=== PATIENT | female | born 1980 | race Caucasian/White ===

== ENCOUNTER 2018-05-22 19:38 | Emergency (ER) | payer BC, SELFPAY ==
[2018-05-22 19:57] VITALS: BP 124/76; PULSE 104; RESP 16; O2SAT 100; BMI 30.4
--- NOTE | 2018-05-22 20:30 | ED.ABDPAIN ---
HPI - Abdominal Pain <Claudine Momin PA-C - Last Filed: 05/22/18 22:40> General Chief Complaint: Abdominal Pain Stated Complaint: KNEE SURGERY RECENTLY,ON OXYCODONE,NO BM,PAIN Time Seen by Provider: 05/22/18 20:30 Source: patient Mode of arrival: ambulatory Limitations: no limitations History of Present Illness HPI narrative: This 37-year-old female comes to the ED today due to constipation. She states that an ACL reconstruction last . Normally she does not take any medication, but she has needed to take 10 mg of oxycodone every 4 hr or so to manage pain. She has been taking Colace 300 mg daily, but today is on day 6 without a bowel movement. She started to have some fullness so did a Fleet's enema at home but unable to go. She feels like she has the urge and feels distended and crampy. She denies any nausea or vomiting. She has not had any fever. She states that she has only been Ensure, Jell-O, crackers, not her usual foods, but is drinking plenty of fluids. She denies any other new symptoms or complaints aside from chronic hemorrhoids Related Data Home Medications Medication Instructions Recorded Confirmed multivitamin [Multiple Vitamins] 1 tab PO QDAY #0 11/21/17 Allergies Allergy/AdvReac Type Severity Reaction Status Date / Time No Known Allergies Allergy Uncoded 01/10/18 12:48 Review of Systems <Claudine Momin PA-C - Last Filed: 05/22/18 22:40> Review of Systems All systems reviewed & are unremarkable except as noted in HPI and below Exam <Claudine Momin PA-C - Last Filed: 05/22/18 22:40> Narrative Exam Narrative: GENERAL APPEARANCE: Patient resting comfortably, in no distress. HEENT: PERRL, EOMI, no scleral icterus NECK: Supple LUNGS: Clear to auscultation bilaterally. HEART: Rate and rhythm regular, normal S1 and S2, no S3 or S4. ABDOMEN: Soft, nondistended, bowel sounds present x 4 quadrants, no masses palpable, mild generalized tenderness without guarding or rebound, no CVAT EXTREMITIES: No edema, no cyanosis DERMATOLOGIC: No jaundice or exanthem NEUROLOGIC: Alert and oriented with normal speech and coordination RECTAL: There are 2 large, nonthrombosed hemorrhoids externally which are somewhat tender. I can palpate some firm but not rock hard stool about 2 cm in the vault. Stool is brown, guaiac negative Initial Vital Signs Initial Vital Signs: Vital Signs Pulse Rate 104 H 05/22/18 19:57 Respiratory Rate 16 05/22/18 19:57 Blood Pressure 124/76 H 05/22/18 19:57 Pulse Oximetry 100 05/22/18 19:57 <Casey Baugh DO - Last Filed: 05/24/18 03:41> Initial Vital Signs Initial Vital Signs: Vital Signs Pulse Rate 104 H 05/22/18 19:57 Respiratory Rate 16 05/22/18 19:57 Blood Pressure 124/76 H 05/22/18 19:57 Pulse Oximetry 100 05/22/18 19:57 Course <Claudine Momin PA-C - Last Filed: 05/22/18 22:40> Additional Information: Patient felt urgency but did not have bowel movement while here after mineral oil suppository attempt to move with red rubber catheter. She did feel like she might be able to got home later. She was given instructions for continued treatment at home and agreed to return if any acutely worsening symptoms such as pain, fever, or vomiting Vital Signs - 8 hr 05/22/18 19:57 Pulse Rate 104 H Respiratory Rate 16 Blood Pressure 124/76 H Pulse Oximetry 100 <Casey Baugh DO - Last Filed: 05/24/18 03:41> Vital Signs - 8 hr 05/22/18 19:57 Pulse Rate 104 H Respiratory Rate 16 Blood Pressure 124/76 H Pulse Oximetry 100 Discharge Plan Departure Patient Disposition: Home Clinical Impression: Constipation due to opioid therapy Discharge Date/Time: 05/22/18 22:42 Interventions: ED Discharge Assessment Last Done: 05/22/18 22:41 Instructions: DI for Constipation Activity Restrictions/Additional Instructions: Please try mixing a dose of MiraLax with 1 dose of liquid Maalox, +4 to 6 oz each of prune juice and apple juice. This typically resolve the constipation. You can repeat this tomorrow if needed. Please continue to take MiraLax every day while you are using the pain medication as this is likely to help keep things moving for you. You can add other laxatives or stool softeners to that if you need to. Please return as we talked about if you have acutely worsening pain or new symptoms such as vomiting or fever Prescriptions: No Action multivitamin [Multiple Vitamins] 1 EACH tablet 1 tab PO QDAY Qty: 0 RF: 0 Referrals: Jaswant Duncan [Other] <Casey Baugh, - Last Filed: 05/24/18 03:41> Cosign ED Attending Amber Attestation: I was immediately available in the department for consultation. Documentation has been reviewed. I agree with assessment and plan.
[2018-05-22 22:41] VITALS: BP 117/75; PULSE 92; RESP 18; TEMP 37.1; O2SAT 98
== END 2018-05-22 22:42 | disposition home or self-care (01) ==
PROVIDERS: Emergency Provider Internal Medicine; PCP Family Medicine
DX: K59.03 Drug induced constipation (principal); T40.2X5A Adverse effect of other opioids, initial encounter
CPT/HCPCS: 99282; 99283

== ENCOUNTER → 2021-10-26 14:13 | Outpatient (CLI) | payer BC, SELFPAY | PROVIDERS: PCP Family Medicine; Referring Provider Family Medicine; Visit Provider Family Medicine | DX: N63.25 Unspecified lump in the left breast, overlapping quadrants (principal); Z53.8 Procedure and treatment not carried out for other reasons ==

== ENCOUNTER → 2021-11-16 13:23 | Outpatient (CLI) | payer BC, SELFPAY ==
--- NOTE | 2021-11-16 13:24 | DI.MG.S_ITS ---
BILATERAL DIGITAL DIAGNOSTIC MAMMOGRAM 3D/2D: 11/16/2021 CLINICAL: Left breast skin lump. Comparison is made to exams dated: 01/25/2016 mammogram and 05/30/2011 mammogram - outside location. The tissue of both breasts is heterogeneously dense. This may lower the sensitivity of mammography. No significant masses, calcifications, or other findings are seen in either breast. No abnormality which corresponds with the palpable abnormality is seen. IMPRESSION: INCOMPLETE: NEEDS ADDITIONAL IMAGING EVALUATION There is no abnormality seen in the left breast to correspond with the mass in the sub-areolar depth, however, ultrasound is recommended. US will be performed and dictated separately. This exam was interpreted at Station ID: [id number]. NOTE: For mammograms, a report in lay terms will be sent to the patient. Approximately 15% of breast malignancies will not be visualized mammographically. In the management of a palpable breast mass, a negative mammogram must not discourage biopsy of a clinically suspicious lesion. Electronically Signed By: Kun Hidalgo acr/:11/16/2021 15:26:44 ACR BI-RADS Category 0: Incomplete [id number]
--- NOTE | 2021-11-16 13:24 | DI.US.S_ITS ---
ULTRASOUND OF LEFT BREAST: 11/16/2021 CLINICAL: Palpable left breast lump. Comparison is made to exams dated: 11/16/2021 mammogram - [facility], 01/25/2016 mammogram, and 05/30/2011 mammogram - outside location. Color flow and Doppler ultrasound of the left breast were performed. In the left retroareolar breast there is a 0.9 x 0.5 x 0.9 cm hypoechoic focus within the skin. IMPRESSION: BENIGN Given the history of being present for the last year and association with a previously pulled hair the finding is likely a sebaceous cyst. Recommend clinical treatment and follow up. The location is within the skin and therefore a dermal malignancy cannot be excluded. If on clinical exam this finding has a clinical appearance that is suspicious for a malignancy or if the finding persists after treatment, recommend referral to dermatology. A 1 year screening mammogram is recommended. This exam was interpreted at Station ID: [id number]. Electronically Signed By: Kun Hidalgo acr/:11/16/2021 15:46:59 letter sent: Clinical Evaluation Ultrasound BI-RADS: 2 Benign
== END ==
PROVIDERS: PCP Family Medicine; Referring Provider Family Medicine; Visit Provider Family Medicine
DX: N63.20 Unspecified lump in the left breast, unspecified quadrant (principal); R92.2 Inconclusive mammogram
CPT/HCPCS: 76642; 77066; G0279

== ENCOUNTER → 2023-01-31 09:25 | Outpatient (CLI) | payer BC, SELFPAY ==
[2023-01-31 11:34] LABS: Alanine Aminotransferase 34 IU/L (<35); Albumin 4.4 g/dL (3.5-5.0); Albumin Globulin Ratio 1.5 (1.0-2.8); Alkaline Phosphatase 58 U/L (38-126); Aspartate Aminotransferase 29 IU/L (14-36); BUN Creatinine Ratio 16.3 (6-22); Bilirubin Total 0.9 mg/dL (0.2-1.3); Blood Urea Nitrogen 14 mg/dL (7-17); Calcium 9.3 mg/dL (8.4-10.2); Carbon Dioxide 30 mmol/L (22-32); Chloride 102 mmol/L (98-107); Cholesterol 165 mg/dL (140-199); Estimated Glomerular Filt Rate > 60 mL/min (>60); Globulin 2.9 g/dL (1.7-4.1); Glucose 91 mg/dL (70-100); HDL Cholesterol 50 mg/dL (40-60); HEMOLYSIS < 15 (0-50); LDL Cholesterol Calculated 94 mg/dL (<100); Potassium 4.7 mmol/L (3.4-5.1); Sodium 137 mmol/L (137-145); Total Protein 7.3 g/dL (6.3-8.2); Triglycerides 107 mg/dL (35-150)
[2023-01-31 11:49] LABS: TSH w/ Reflex to FT4 0.77 uIU/mL (0.47-4.68)
== END ==
PROVIDERS: PCP Family Medicine; Referring Provider Family Medicine; Visit Provider Family Medicine
DX: E28.319 Asymptomatic premature menopause (principal); R68.89 Other general symptoms and signs; E78.5 Hyperlipidemia, unspecified; E03.9 Hypothyroidism, unspecified
CPT/HCPCS: 36415; 80053; 80061; 84443

== ENCOUNTER → 2023-03-24 10:42 | Outpatient (CLI) | payer BC, SELFPAY ==
[2023-03-24 12:27] LABS: Alanine Aminotransferase 21 IU/L (<35); Albumin 4.4 g/dL (3.5-5.0); Albumin Globulin Ratio 1.3 (1.0-2.8); Alkaline Phosphatase 48 U/L (38-126); Aspartate Aminotransferase 24 IU/L (14-36); BUN Creatinine Ratio 13.6 (6-22); Bilirubin Total 1.2 mg/dL (0.2-1.3); Blood Urea Nitrogen 11 mg/dL (7-17); Calcium 9.5 mg/dL (8.4-10.2); Carbon Dioxide 27 mmol/L (22-32); Chloride 101 mmol/L (98-107); Cholesterol 184 mg/dL (140-199); Estimated Glomerular Filt Rate > 60 mL/min (>60); Globulin 3.3 g/dL (1.7-4.1); Glucose 86 mg/dL (70-100); HDL Cholesterol 52 mg/dL (40-60); HEMOLYSIS < 15 (0-50); LDL Cholesterol Calculated 110 mg/dL (<100); Potassium 4.4 mmol/L (3.4-5.1); Sodium 136 mmol/L (137-145); Total Protein 7.7 g/dL (6.3-8.2); Triglycerides 109 mg/dL (35-150)
[2023-03-24 13:23] LABS: Add Manual Diff / Slide Review NO; Basophils Absolute Auto 0 /uL (0-100); Basophils Percent Auto 0.7 % (0-2); Eosinophils Absolute Auto 100 /uL (0-450); Eosinophils Percent Auto 1.7 % (2-4); Hematocrit 37.3 % (36-46); Hemoglobin 12.8 g/dL (12.0-16.0); Lymphocytes Absolute Auto 1700 /uL (1100-4500); Lymphocytes Percent Auto 28.9 % (25-40); Mean Corpuscular HGB Conc 34.4 % (30-36); Mean Corpuscular Hemoglobin 29.4 PG (26-34); Mean Corpuscular Volume 85.5 fL (80-100); Monocytes Absolute Auto 400 /uL (0-900); Monocytes Percent Auto 7.6 % (3-14); Neutrophils Absolute Auto 3500 /uL (1500-7000); Neutrophils Percent Auto 61.1 % (50-75); Platelet Count 387 X10^3/uL (150-400); Red Blood Cell Count 4.37 X10^6/uL (4.0-5.2); Red Cell Distribution Width 12.5 % (11.6-14.8); White Blood Cell Count 5.7 X10^3/uL (4.5-11.0)
[2023-03-24 13:52] LABS: Alanine Aminotransferase 20 IU/L (<35); Albumin 4.4 g/dL (3.5-5.0); Albumin Globulin Ratio 1.5 (1.0-2.8); Alkaline Phosphatase 48 U/L (38-126); Aspartate Aminotransferase 23 IU/L (14-36); Bilirubin Total 1.1 mg/dL (0.2-1.3); Globulin 2.9 g/dL (1.7-4.1); HEMOLYSIS < 15 (0-50); Total Protein 7.3 g/dL (6.3-8.2)
[2023-03-24 14:17] LABS: Ferritin 33 ng/mL (6-137)
== END ==
PROVIDERS: PCP Family Medicine; Referring Provider Naturopath; Visit Provider Naturopath
DX: Z51.81 Encounter for therapeutic drug level monitoring (principal); E78.5 Hyperlipidemia, unspecified; N92.0 Excessive and frequent menstruation with regular cycle; E03.9 Hypothyroidism, unspecified; R68.89 Other general symptoms and signs; B35.4 Tinea corporis; Z79.899 Other long term (current) drug therapy
CPT/HCPCS: 36415; 80053; 80061; 80076; 82728; 84443; 85025

== ENCOUNTER → 2025-01-02 09:49 | Outpatient (CLI) | payer BC, SELFPAY ==
[2025-01-02 10:53] LABS: Add Manual Diff / Slide Review NO; Basophils Absolute Auto 0 /uL (0-100); Basophils Percent Auto 0.4 % (0-2); Eosinophils Absolute Auto 100 /uL (0-450); Eosinophils Percent Auto 1.8 % (2-4); Hematocrit 40.2 % (36-46); Hemoglobin 13.8 g/dL (12.0-16.0); Lymphocytes Absolute Auto 1800 /uL (1100-4500); Lymphocytes Percent Auto 23.3 % (25-40); Mean Corpuscular HGB Conc 34.4 % (30-36); Mean Corpuscular Hemoglobin 29.2 PG (26-34); Mean Corpuscular Volume 84.9 fL (80-100); Monocytes Absolute Auto 700 /uL (0-900); Neutrophils Absolute Auto 5100 /uL (1500-7000); Neutrophils Percent Auto 65.5 % (50-75); Platelet Count 369 X10^3/uL (150-400); Red Blood Cell Count 4.74 X10^6/uL (4.0-5.2); Red Cell Distribution Width 12.6 % (11.6-14.8); White Blood Cell Count 7.7 X10^3/uL (4.5-11.0)
[2025-01-02 11:17] LABS: Alanine Aminotransferase 54 IU/L (<35); Albumin 4.7 g/dL (3.5-5.0); Albumin Globulin Ratio 1.4 (1.0-2.8); Alkaline Phosphatase 65 U/L (38-126); Aspartate Aminotransferase 44 IU/L (14-36); BUN Creatinine Ratio 15.7 (6-22); Bilirubin Total 1.1 mg/dL (0.2-1.3); Blood Urea Nitrogen 16 mg/dL (7-17); Calcium 9.8 mg/dL (8.4-10.2); Carbon Dioxide 22 mmol/L (22-32); Chloride 104 mmol/L (98-107); Cholesterol 229 mg/dL (140-199); Estimated Glomerular Filt Rate > 60 mL/min (>60); Globulin 3.3 g/dL (1.7-4.1); Glucose 94 mg/dL (70-100); HDL Cholesterol 40 mg/dL (40-60); HEMOLYSIS < 15 (0-50); LDL Cholesterol Calculated 155 mg/dL (<100); Potassium 4.4 mmol/L (3.4-5.1); Sodium 136 mmol/L (137-145); Triglycerides 168 mg/dL (35-150)
[2025-01-02 11:23] LABS: Hemoglobin A1C% w Est Avg Glu 4.9 % (4.0-6.0)
[2025-01-02 11:38] LABS: Vitamin D 25 Hydroxy (D3) 53.1 ng/mL (30.0-100.0)
[2025-01-02 12:07] LABS: Vitamin B12 476 pg/mL (239-931)
== END ==
LOC: LAB 09:50
PROVIDERS: PCP Family Medicine; Referring Provider Family Medicine; Visit Provider Family Medicine
DX: R53.83 Other fatigue (principal); E66.9 Obesity, unspecified
CPT/HCPCS: 36415; 80053; 80061; 82306; 82607; 83036; 84439; 84443; 84481; 85025; 86376; 86800

== ENCOUNTER → 2025-03-05 08:15 | Outpatient (CLI) | payer BC, SELFPAY ==
[2025-03-05 10:12] LABS: Alanine Aminotransferase 24 IU/L (<35); Albumin 4.6 g/dL (3.5-5.0); Albumin Globulin Ratio 1.8 (1.0-2.8); Alkaline Phosphatase 61 U/L (38-126); Aspartate Aminotransferase 31 IU/L (14-36); BUN Creatinine Ratio 18.4 (6-22); Blood Urea Nitrogen 16 mg/dL (7-17); Calcium 9.2 mg/dL (8.4-10.2); Carbon Dioxide 23 mmol/L (22-32); Chloride 104 mmol/L (98-107); Cholesterol 203 mg/dL (140-199); Estimated Glomerular Filt Rate > 60 mL/min (>60); Globulin 2.5 g/dL (1.7-4.1); Glucose 97 mg/dL (70-99); HDL Cholesterol 45 mg/dL (40-60); HEMOLYSIS < 15 (0-50); LDL Cholesterol Calculated 124 mg/dL (<100); Potassium 4.6 mmol/L (3.4-5.1); Sodium 136 mmol/L (137-145); Total Protein 7.1 g/dL (6.3-8.2); Triglycerides 169 mg/dL (35-150)
== END ==
PROVIDERS: PCP Family Medicine; Referring Provider Family Medicine; Visit Provider Family Medicine
DX: E78.5 Hyperlipidemia, unspecified (principal); R74.8 Abnormal levels of other serum enzymes
CPT/HCPCS: 36415; 80053; 80061

== ENCOUNTER → 2025-06-10 16:05 | Outpatient (CLI) | payer BC, SELFPAY ==
--- NOTE | 2025-06-10 16:07 | DI.MRI.S_ITS ---
PROCEDURE: MR CERVICAL SPINE WO CON INDICATIONS: CERVICAL REDICULOPATHY TECHNIQUE: Noncontrast sagittal T1 spin echo and T2 fast spin echo, sagittal STIR, foraminal oblique sagittal T2 fast spin echo, and axial gradient echo or T2 fast spin echo through the cervical spine. COMPARISON: None. FINDINGS: Image quality: Excellent. Alignment and Curvature: There is overall straightening of the normal cervical lordosis. There is minimal retrolisthesis seen at the C5-C6 level. Bone Marrow: Marrow demonstrates normal overall signal. Spinal Cord: Visualized spinal cord has normal size and signal. No cerebellar tonsillar herniation. Paraspinous Soft Tissues: No paravertebral masses. Prevertebral soft tissues are normal in thickness. C2-C3: Normal appearance. C3-C4: The disc height and disk signal are relatively well-preserved. Disc osteophyte complex is seen, which is eccentric to the right. There is moderate right-sided and mild left-sided facet hypertrophy. There is moderate right-sided and mild left-sided neural foraminal narrowing. No central canal narrowing is seen. C4-C5: The disc height and disk signal are well-preserved. A mild degree of generalized disc osteophyte complex is seen. Moderate facet joint hypertrophy is seen. There is mild right-sided and moderate left-sided neural foraminal narrowing. No central canal narrowing is seen. C5-C6: [id number] loss of disc height and disc signal can be seen. Moderate generalized disc osteophyte complex is seen. There is a superimposed central disc osteophyte protrusion. Moderate facet joint hypertrophy is seen. There is moderate to severe bilateral neural foraminal narrowing seen. Moderate central canal narrowing is seen. There is associated mass effect upon the ventral spinal cord. C6-C7: Mild loss of disc height is seen. Loss of disc signal is seen. A mild degree of generalized disc osteophyte complex is seen. There is a superimposed disc extrusion within the left lateral recess/left foraminal region, as on series 3, image 32 and on series 7, image 5. Mild facet joint hypertrophy is seen. There is moderate to severe left-sided and at least moderate right-sided neural foraminal narrowing. Moderate central canal narrowing is seen. C7-T1: Normal appearance. IMPRESSION: At the C6-C7 level, there is a left-sided disc extrusion seen. Milder degenerative changes can be seen elsewhere, including at the C5-C6 level. Dictated by: Luca William M.D. on 06/10/2025 at 16:03 Approved by: Luca William M.D. on 06/10/2025 at 16:07
== END ==
LOC: MRI 16:06
PROVIDERS: PCP Family Medicine; Referring Provider Internal Medicine; Visit Provider Internal Medicine
DX: M47.22 Other spondylosis with radiculopathy, cervical region (principal); M50.123 Cervical disc disorder at C6-C7 level with radiculopathy; R29.898 Other symptoms and signs involving the musculoskeletal system; G89.29 Other chronic pain
CPT/HCPCS: 72141

== ENCOUNTER → 2025-08-07 08:48 | Outpatient (CLI) | payer BC, SELFPAY ==
[2025-08-07 10:30] LABS: Estradiol, Total 61.3 pg/mL
== END ==
PROVIDERS: PCP Family Medicine; Referring Provider Family Medicine; Visit Provider Emergency Medicine
DX: N95.1 Menopausal and female climacteric states (principal); F52.0 Hypoactive sexual desire disorder
CPT/HCPCS: 36415; 82670; 84403